=== PATIENT | female | born 2000 | race African-American/Black ===

== ENCOUNTER → 2018-05-25 10:45 | Outpatient (CLI) | payer MEDICAID ==
[2015-08-01 02:51] VITALS: BMI 36.7
[~2018-05-25 10:45] MED LIST: DIFLUCAN150 MG; PREPLUS CA-FE1 EACH PO
[2018-05-25 11:23] LABS: APPEARANCE SL CLDY (CLEAR); COLOR DK YELLOW (YELLOW); SPECIFIC GRAVITY 1.015 (1.005-1.020)
[2018-05-25 11:24] LABS: AMORPHOUS SEDIMENT <1+ /lpf (NONE SEEN); BACTERIA MODERATE /hpf (NONE SEEN); BILIRUBIN NEGATIVE (NEGATIVE); EPITHELIAL CELLS 0-5 /hpf (0-5); GLUCOSE NEGATIVE (NEGATIVE); KETONE NEGATIVE (NEGATIVE); MUCUS <1+ /lpf (NONE SEEN); NITRITE NEGATIVE (NEGATIVE); PROTEIN NEGATIVE (NEGATIVE)
== END | disposition home or self-care (01) ==
LOC: D.LDO 10:45
PROVIDERS: Obstetrics & Gynecology
DX: O26.893 Other specified pregnancy related conditions, third trimester (principal); Z3A.37 37 weeks gestation of pregnancy

== ENCOUNTER 2018-06-05 09:59 | Inpatient (IN) | payer MEDICAID ==
[~2018-06-05] VITALS: Ht 167.6 cm; Wt 113.4 kg
[2018-06-05] VITALS (11 sets, daily range): BP systolic 128–151; BP diastolic 70–91; Ht 167.6 cm; Wt 113.4 kg
[2018-06-05] MEDS ORDERED: PREPLUS CA-FE1 EACH PO (10:04)
[2018-06-05 10:30] LABS: HEMATOCRIT 32.2 % (36.0-48.0); HEMOGLOBIN 10.4 g/dL (12-16); MCH 27.7 pg (26.0-34.0); MCHC 32.3 g/dL (31.0-37.0); MCV 85.9 fL (80.0-100.0); MEAN PLATELET VOLUME 10.7 fL (7.4-10.4); RBC 3.75 10x6/uL (4.00-5.40); RDW 14.4 % (11.5-14.5); WBC 15.4 10x3/uL (4.8-10.8)
[2018-06-05 18:36] LABS: BASOPHILS 0.1 % (0-2); EOSINOPHILS 0.3 % (0-7); HEMATOCRIT 30.7 % (36.0-48.0); HEMOGLOBIN 9.9 g/dL (12-16); IMMATURE GRANULOCYTES 0.5 % (0-5); LYMPHOCYTES 13.1 % (15-50); MCH 27.6 pg (26.0-34.0); MCHC 32.2 g/dL (31.0-37.0); MCV 85.5 fL (80.0-100.0); MEAN PLATELET VOLUME 10.5 fL (7.4-10.4); PLATELET COUNT 187 10x3/uL (130-400); RBC 3.59 10x6/uL (4.00-5.40); RDW 14.1 % (11.5-14.5); WBC 18.8 10x3/uL (4.8-10.8)
[2018-06-05 18:51] LABS: CALC OSMOLALITY 272 mosm/kg (275-300); CALCIUM 7.9 mg/dL (8.5-10.1); CARBON DIOXIDE 22.8 mmol/L (21.0-32.0); CHLORIDE - SERUM 105 mmol/L (98-107); CREATININE - SERUM 0.5 mg/dL (0.6-1.3); POTASSIUM - SERUM 3.3 mmol/L (3.5-5.1); SODIUM 139 mmol/L (136-145); UREA NITROGEN 5 mg/dL (7-18); URIC ACID 4.2 mg/dL (2.6-7.2); eGFR NON AFRICAN AMERICAN > 90 mL/min (90-120)
[2018-06-05 19:11] LABS: GLUCOSE 70 mg/dL (74-106)
[2018-06-06 00:24] VITALS: BP 127/74
[2018-06-06 03:24] VITALS: BP 132/90
[2018-06-06 06:15] LABS: RAPID PLASMA REAGIN Non Reactive (Non Reactive)
[2018-06-06 07:46] LABS: BASOPHILS 0.1 % (0-2); EOSINOPHILS 0.4 % (0-7); HEMATOCRIT 28.7 % (36.0-48.0); HEMOGLOBIN 9.2 g/dL (12-16); IMMATURE GRANULOCYTES 0.5 % (0-5); LYMPHOCYTES 11.9 % (15-50); MCH 27.5 pg (26.0-34.0); MCHC 32.1 g/dL (31.0-37.0); MCV 85.9 fL (80.0-100.0); MEAN PLATELET VOLUME 11.2 fL (7.4-10.4); MONOCYTES 8.1 % (2-11); PLATELET COUNT 199 10x3/uL (130-400); RBC 3.34 10x6/uL (4.00-5.40); RDW 14.2 % (11.5-14.5); WBC 17.4 10x3/uL (4.8-10.8)
[2018-06-06 07:47] VITALS: BP 138/80
[2018-06-06 12:28] VITALS: BP 135/77
[2018-06-06 19:04] VITALS: BP 140/100
[2018-06-06 19:51] VITALS: BP 142/80
[2018-06-07 01:29] VITALS: BP 137/74
[2018-06-07] MEDS ORDERED: DIFLUCAN150 MG (06:14)
[2018-06-07 07:45] VITALS: BP 137/82
--- NOTE | 2018-06-07 12:44 | MORECARE ---
CASE MANAGEMENT DISCHARGE SUMMARY PATIENT: SAMANTHA DORSEY UNIT: [id number] ADM DATE: 06/05/18 AGE: 17 : [birth year] SEX: F ROOM/BED: D.1276 AUTHOR: ARLEEN,DOC PHYSICIAN: REFERRING PHYSICIAN: SPENCER MURPHY MD DATE OF SERVICE: 06/07/18 Discharge Plan Patient Name: SAMANTHA DORSEY Facility: [facility]:[place] : 2000 Planned Disposition: Anticipated Discharge Date: Discharge Date: Expected LOS: Initial Reviewer: [email or web address] Initial Review Date: 06/07/2018 Generated: 06/07/18 1:44 pm Comments DCP- Discharge Planning Updated by [email or web address]: Madelin Nugent on 06/07/18 11:[address] Patient Name: SAMANTHA DORSEY Admission Status: Elective Accout number: [id number] Admission Date: 06-05-2018 : 2000 Admission Diagnosis: Attending: SPENCER MURPHY Current LOS: 2 Anticipated DC Date: Planned Disposition: Primary Insurance: MEDICAID [place] Discharge Planning Comments: DC PLAN: Home with baby and FOB and other child. MOB is Samantha Dorsey, address [address] [place] [address]. Phone number [phone]. DC NEEDS: None TRANSPORTATION: Yes WIC: Yes, already has appointment information. MEDICAID: Has already filled out papers today. CAR SEAT: Yes FEEDING PLAN: Plans to breast feed. BABY NAME: Karen Samuel FOB: Issac Samuel MOB: Plans to discharge to home, states may go back to work in 2 to 3 months. PHOTO OFFSET PRINTER: Efrain CARE: Yes, Dr. De Jesus. SUPPLIES: MOB states has diapers, bottles, crib, car seat and clothes. WATER SOURCE: city HEAT SOURCE: Electric AIR CONDITIONING: yes, window unit CM met with MOB and FOB regarding dc planning/needs. MOB to return to home where she lives with FOB and child. States home environment is safe. She states in addition to herself, two other people live in the home. FOB and her 2year old son. FOB will transport MOB to her appointments. MOB states this is her second child. Denies animals, smokers, drug users, or etoh use in the home. KENYON declined information on parenting classes and breast feeding information. Denies any discharge needs at this time. CM spoke with KENYON about depression since she scored a 10 on her PHQ-9 Questionnaire. She denies suicidal or homicidal thoughts. States she doesn't feel depressed and she just started back on her Lexapro yesterday. Patient makes eye contact and answers questions appropriately. Appears to be bonding well with the infant. Patients nurses state they have not seen any signs for concern. Patient states if she becomes depressed or feelings of suicide she will contact her doctor. CM will continue to follow and assist as needed with dc planning/needs. In File Operator: Madelin Nugent DCPIA - Discharge Planning Initial Assessment Updated by [email or web address]: Madelin Nugent on 06/07/18 12:33 pm * Is the patient Alert and Oriented? Yes * PCP [facility] * Pharmacy [facility] [address] Patient Name: SAMANTHA DORSEY Page [id number] at 1244 All edits/amendments must be made on the electronic document DICTATION DATE: 06/07/18 1243 [employer] CONSULTANT: JUVENCIO 06/07/18 1243 RPT#: [id number] DC DATE: STATUS: ADM IN [facility] [address] [place] [address] END OF REPORT
--- NOTE | 2018-06-08 15:48 | MORECARE ---
CASE MANAGEMENT DISCHARGE SUMMARY PATIENT: SAMANTHA DORSEY UNIT: [id number] ADM DATE: 06/05/18 AGE: 17 : 98 SEX: F ROOM/BED: D.1276 AUTHOR: ARLEEN,DOC PHYSICIAN: REFERRING PHYSICIAN: SPENCER MURPHY MD DATE OF SERVICE: 06/08/18 Discharge Plan Patient Name: SAMANTHA DORSEY Facility: [facility]:[place] : 2000 Planned Disposition: Anticipated Discharge Date: Discharge Date: 06/07/2018 Expected LOS: Initial Reviewer: [email or web address] Initial Review Date: 06/07/2018 Generated: 06/08/18 4:48 pm Comments DCP- Discharge Planning Updated by [email or web address]: Madelin Nugent on 06/07/18 11:[address] Patient Name: SAMANTHA DORSEY Admission Status: Elective Accout number: [id number] Admission Date: 06-05-2018 : 2000 Admission Diagnosis: Attending: SPENCER MURPHY Current LOS: 2 Anticipated DC Date: Planned Disposition: Primary Insurance: MEDICAID [place] Discharge Planning Comments: DC PLAN: Home with baby and FOB and other child. MOB is Samantha Dorsey, address [address] [place] [address]. Phone number [phone]. DC NEEDS: None TRANSPORTATION: Yes WIC: Yes, already has appointment information. MEDICAID: Has already filled out papers today. CAR SEAT: Yes FEEDING PLAN: Plans to breast feed. BABY NAME: Karen Samuel FOB: Issac Samuel MOB: Plans to discharge to home, states may go back to work in 2 to 3 months. SUBWAY REPAIR SUPERVISOR: Efrain CARE: Yes, Dr. De Jesus. SUPPLIES: MOB states has diapers, bottles, crib, car seat and clothes. WATER SOURCE: city HEAT SOURCE: Electric AIR CONDITIONING: yes, window unit CM met with MOB and FOB regarding dc planning/needs. MOB to return to home where she lives with FOB and child. States home environment is safe. She states in addition to herself, two other people live in the home. FOB and her 2year old son. FOB will transport MOB to her appointments. MOB states this is her second child. Denies animals, smokers, drug users, or etoh use in the home. MOB declined information on parenting classes and breast feeding information. Denies any discharge needs at this time. CM spoke with KENYON about depression since she scored a 10 on her PHQ-9 Questionnaire. She denies suicidal or homicidal thoughts. States she doesn't feel depressed and she just started back on her Lexapro yesterday. Patient makes eye contact and answers questions appropriately. Appears to be bonding well with the infant. Patients nurses state they have not seen any signs for concern. Patient states if she becomes depressed or feelings of suicide she will contact her doctor. CM will continue to follow and assist as needed with dc planning/needs. Brickmason Helper: Madelin Nugent DCPIA - Discharge Planning Initial Assessment Updated by [email or web address]: Madelin Nugent on 06/07/18 12:33 pm * Is the patient Alert and Oriented? Yes * PCP [facility] * Pharmacy [facility] [address] [facility] DP export: 06/07/18 11:44 a Patient Name: SAMANTHA DORSEY Page [id number] at 1548 All edits/amendments must be made on the electronic document DICTATION DATE: 06/08/181547 TRAINING TECHNICIAN: JUVENCIO 06/08/18 1548 RPT#: [id number] DC DATE:06/07/18 STATUS: DIS IN [facility] [address] [place] [address] END OF REPORT
== END 2018-06-07 12:45 | disposition home or self-care (01) | DRG 788 ==
LOC: D.LD 09:59 → D.SDCHOLD 12:00 → D.LD 14:31
PROVIDERS: ADMIT Obstetrics & Gynecology
PROC: 10D00Z1 Extraction of Products of Conception, Low, Open Approach (ICD-10-PCS; principal; 2018-06-05 12:00)
DX: O34.211 Maternal care for low transverse scar from previous cesarean delivery (principal); Z3A.39 39 weeks gestation of pregnancy; Z37.0 Single live birth; O99.824 Streptococcus B carrier state complicating childbirth